=== PATIENT | male | born 1980 | race Caucasian/White ===

== ENCOUNTER 2023-07-01 10:21 | Outpatient (CLI) | payer OTHER, SELFPAY ==
[2023-07-01 10:46] LABS: Basophils Absolute Auto 0.1 K/mm3 (0.0-0.1); Basophils Percent Auto 0.9 % (0.2-1.2); Eosinophils Absolute Auto 0.1 K/mm3 (0-0.3); Eosinophils Percent Auto 1.6 % (0-4.4); Hematocrit 49.8 % (42.0-52.0); Hemoglobin 17.1 g/dL (14.0-18.0); Immature Granulocyte Absolute 0.02 K/mm3 (0.00-0.031); Immature Granulocyte Percent A 0.4 % (0-0.5); Lymphocytes Absolute Auto 2.17 K/mm3 (0.9-3.2); Lymphocytes Percent Auto 39.2 % (18.3-44.2); Mean Corpuscular HGB Conc 34.3 g/dl (32-36); Mean Corpuscular Hemoglobin 31.1 pg (26-34); Mean Corpuscular Volume 90.7 fl (80-100); Mean Platelet Volume 9.2 fl (7.4-10.4); Monocytes Absolute Auto 0.6 K/mm3 (0.1-0.6); Monocytes Percent Auto 9.9 % (2.6-8.5); Neutrophils Absolute Auto 2.7 K/mm3 (1.3-6.7); Platelet Count Result 316 k/mm3 (150-375); Red Blood Count 5.49 M/mm3 (4.6-6.20); White Blood Count 5.5 K/mm3 (4.5-10.0)
[2023-07-01 11:05] LABS: Appearance Urine Clear (Clear); Bilirubin Urine Negative (Negative); Blood Urine Negative (Negative); Color Urine Yellow (Yellow); Glucose Urine UA Negative (Negative); Ketones Urine Negative (Negative); Leukocyte Esterase Ur Negative LEU/UL (NEGATIVE); Nitrate Urine Negative (Negative); Protein Urine Negative (Negative); Specific Grav Ur 1.005 (1.001-1.035); Urobilinogen Urine 0.2 mg/dL (<2.0); pH Urine 7.5 (5.0-9.0)
[2023-07-01 11:08] LABS: Alanine Aminotransferase 32 U/L (6-50); Albumin Level 4.4 g/dL (3.5-5.1); Alkaline Phosphatase 52 U/L (38-126); Anion Gap 6 mmol/L (8-16); Aspartate Amino Transferase 42 U/L (17-59); Bilirubin,Total 0.7 mg/dL (0.2-1.3); Blood Urea Nitrogen 17 mg/dL (9-20); Calcium 9.4 mg/dL (8.4-10.2); Carbon Dioxide 31 mmol/L (22-30); Chloride 98 mmol/L (98-107); Cholesterol 187 mg/dL (0-200); Estimated Glomerular Filt Rate > 60; Glucose 96 mg/dL (65-110); HDL Direct 49 mg/dL; Potassium 4.3 mmol/L (3.4-5.0); Sodium 135 mmol/L (137-145); Triglycerides 77 mg/dL (<150)
[2023-07-01 11:12] LABS: Add Urine Microscopic? NO
[2023-07-01 11:19] LABS: LDL Cholesterol Direct 115 mg/dL
[2023-07-01 11:24] LABS: Hemoglobin A1C 5.2 % (<5.7)
== END 2023-07-01 10:22 | disposition home or self-care (01) ==
LOC: ANHLAB 10:22
PROVIDERS: PCP Family Medicine; Visit Provider Physician Assistant
DX: R41.82 Altered mental status, unspecified (principal); Z00.00 Encounter for general adult medical examination without abnormal findings
CPT/HCPCS: 36415; 80053; 80061; 81003; 83036; 84153; 84443; 85025; G0103

== ENCOUNTER 2023-07-05 16:30 | Outpatient (CLI) | payer OTHER, SELFPAY ==
--- NOTE | ~2023-07-05 | CT_ITS ---
. EXAMINATION: CT brain wo con DATE: 07/05/2023 16:56 INDICATION: Altered mental status. Intermittent migraines for 20 years. TECHNIQUE: Computed tomography (CT) of the head was performed without intravenous contrast. The mA wa s adjusted according to patient size. Iterative reconstruction technique was employed. Exam dose: 75 6.67 mGy-cm total exam DLP. COMPARISON: None FINDINGS: At least 2.6 cm polypoid soft tissue opacity of the right maxillary sinus. The included par anasal sinuses and the mastoid air cells otherwise appear normally developed and aerated. No fracture or bone destruction of the cranial vault. There is subtle focal asymmetric diminished attenuation of the anterior aspect of the left internal c apsule at the lateral aspect of the head of the caudate nucleus; subacute lacunar infarct is not excl uded. Consider MR brain correlation.. No intracranial mass lesion or hemorrhage or cerebrovascular accident is noted otherwise. No midline shift or mass effect. Mild bilateral carotid siphon internal carotid artery calcifications. Normal ventricular size. Normal ventricular size. No subdural or epidural hematoma is detected. IMPRESSION: Focal asymmetric area of diminished attenuation at the anterior aspect of the anterior l imb of the left internal capsule near the lateral aspect of the head of the caudate nucleus, possibly a subacute small lacunar infarct; consider MR brain correlation Reviewed, dictated and finalized at [facility]. Reviewed, dictated and finalized at [facility] LEVELER MACHINE IMPRESSION: Focal asymmetric area of diminished attenuation at the anterior as pect of the anterior limb of the left internal capsule near the lateral aspect of the head of the caudate nucleus, possibly a subacute small lacunar infarct; consider MR brain correlation
== END 2023-07-05 16:31 | disposition home or self-care (01) ==
PROVIDERS: PCP Family Medicine; Visit Provider Physician Assistant
DX: R41.82 Altered mental status, unspecified (principal); R56.9 Unspecified convulsions
CPT/HCPCS: 70450

== ENCOUNTER → 2023-07-22 09:18 | Outpatient (CLI) | payer OTHER, SELFPAY ==
--- NOTE | ~2023-07-22 | MR_ITS ---
MRI of the brain Clinical History: Abnormal findings on diagnostic imaging Technique: Axial and sagittal T1-weighted images were acquired. These were followed by axial T2-weigh vinicio, diffusion weighted, gradient, and FLAIR images. Following intravenous administration of 20 cc Mu ltiHance gadolinium, T1-weighted fat-sat imaging was performed in the axial and coronal planes. Correlation is CT scan of the brain dated 07/05/2023. Findings: No acute infarct, intracranial hemorrhage, or mass lesion seen. There is focal FLAIR hyperi ntense white matter lesion at the anterior limb of the left internal capsule, which correlates with t he area of hypodensity seen on prior CT scan. This probably represents a focal area of chronic microv ascular ischemic change. No other significant signal abnormality seen in the remainder of the brain p arenchyma. Ventricles and subarachnoid spaces are unremarkable. Orbits are unremarkable. There is right maxillar y cyst retention cyst or polyp. Remaining paranasal sinuses and mastoid air cells are clear. Major in tracranial flow voids are intact. Sagittal midline structures are intact. No abnormal postcontrast enhancement identified. IMPRESSION: Focal white matter lesion at the anterior limb of the left internal capsule which correlates with amie or CT finding. This probably represents focal area of chronic microvascular ischemic change. No acute infarct, intracranial hemorrhage, or mass lesion. Reviewed, dictated and finalized at [facility]. ESSOR OF PATHOLOGY IMPRESSION: Focal white matter lesion at the anterior limb of the left internal capsule whi ch correlates with prior CT finding. This probably represents focal area of chr onic microvascular ischemic change. No acute infarct, intracranial hemorrhage, or mass lesion.
== END ==
PROVIDERS: PCP Physician Assistant; Visit Provider Physician Assistant
DX: R93.0 Abnormal findings on diagnostic imaging of skull and head, not elsewhere classified (principal); I63.81 Other cerebral infarction due to occlusion or stenosis of small artery; R56.9 Unspecified convulsions
CPT/HCPCS: 70553; A9577